=== PATIENT | female | born 1990 | race African-American/Black ===

== ENCOUNTER 2024-05-07 12:04 | Emergency (ER) | payer MEDICAID, OTHER ==
[~2024-05-07] VITALS: Ht 170.2 cm; Wt 68.0 kg
[~2024-05-07 12:04] MED LIST: AMOXICILLIN 500 MG CAPSULE; PREN-88 PO; PREN1TAB33; PREN1TAB76 PO
[2024-05-07 12:14] VITALS: BP 126/65; PULSE 90; RESP 16; O2SAT 99
== END 2024-05-07 13:36 | disposition left against medical advice (07) ==
LOC: ER 13:30
DX: H57.10 Ocular pain, unspecified eye (principal); Z53.21 Procedure and treatment not carried out due to patient leaving prior to being seen by health care provider